=== PATIENT | female | born 1995 | race Caucasian/White ===

== ENCOUNTER 2016-12-16 11:21 | Emergency (ER) | payer SELFPAY ==
[2016-12-16 11:33] VITALS: BP 110/64
--- NOTE | 2016-12-16 12:26 | UC ---
Abelino Hayes Angela, [facility] for [facility] on 12/16/16 at 1159 . Complaint Female HPI - HPI Summary HPI Summary: In Room Note: This pt is a 21 y/o female presenting to [facility] c/o dysuria and lower abd pain x1 day. She also reports bumps on the outside of her vagina x1 day, but is not painful. Pt describes them as "sweat pimples." She states she popped one of them and drained pus. Pt denies back pain, cough, nausea, vomiting, diarrhea, vaginal discharge, vaginal bleeding. Pt is sexually active. Pt denies any STIs. She works in [employer] and sometimes doesn't have a chance to go to the bathroom to urinate. Her LNMP: November 15-November 16. MDs Note: Healthy 21 y/o with 1 day history of dysuria. Vital signs are stable. 8/10 burning discomfort. Previous history of asthma. Visit history is noncontributory. Pt has no known allergies. Nurses Note: Pt states "has UTI". States sx started yesterday, burning urination. Pt states has "couple of red bumps" down there.s - History Of Current Complaint Chief Complaint: UCGU Stated Complaint: UTI Time Seen by Provider: 12/16/16 11:35 Hx Obtained From: Patient Hx Last Menstrual Period: 11/16/16 Onset/Duration: Lasting Days - 1 day Timing: Constant Pain Intensity: 8 Pain Scale Used: 0-10 Numeric Character: Burning Aggravating Factor(s): Nothing Alleviating Factor(s): Nothing Associated Signs And Symptoms: Negative: Back Pain, Vaginal Bleeding/Discharge, Vaginal Discharge, Nausea, Vomiting(# Of Episodes =), Genital Swelling - Allergies/Home Medications Allergies/Adverse Reactions: Allergies Allergy/AdvReac Type Severity Reaction Status Date / Time No Known Allergies Allergy Verified 12/16/16 11:35 PMH/Surg Hx/FS Hx/Imm Hx Other Endocrine History: DENIES: Diabetes Other Cardiovascular History: DENIES: HTN, Cardiac disease - Surgical History Surgical History: None Surgery Procedure, Year, and Place: denies - Family History Known Family History: Negative: Cardiac Disease, Hypertension, Diabetes - Social History Alcohol Use: None Substance Use Type: None Smoking Status (MU): Never Smoked Tobacco Review of Systems Constitutional: Negative Skin: Negative Eyes: Negative ENT: Negative Respiratory: Negative Gastrointestinal: Abdominal Pain - Lower abd pain Genitourinary: Dysuria Motor: Negative Neurovascular: Negative Musculoskeletal: Negative Neurological: Negative Psychological: Negative All Other Systems Reviewed And Are Negative: Yes Physical Exam Triage Information Reviewed: Yes Vital Signs: Initial Vital Signs Temp 98.7 F 12/16/16 11:28 Pulse 86 12/16/16 11:28 Resp 20 12/16/16 11:28 BP 110/64 12/16/16 11:28 Pulse Ox 99 12/16/16 11:28 Vital Signs Reviewed: Yes - Additional Comments The patient is well-nourished in no acute distress and in no acute pain. The skin is warm and dry and skin color reflects adequate perfusion. HEENT: The head is normocephalic and atraumatic. The pupils are equal and reactive. The conjunctivae are clear and without drainage. Nares are patent and without drainage. Mouth reveals moist mucous membranes and the throat is without erythema and exudate. The external ears are intact. The ear canals are patent and without drainage. The tympanic membranes are intact. Neck is supple with full range of motion and non-tender. There are no carotid bruits. There is no neck vein distension. Respiratory: Chest is non-tender. Lungs are clear to auscultation and breath sounds are symmetrical and equal. Cardiovascular: Hear is regular rate and rhythm. There is no murmur or rub auscultated. There is no peripheral edema and pulses are symmetrical and equal. Abdomen: The abdomen is soft. There are normal bowel sounds heard in all four quadrants and there is no organomegaly palpated. THERE IS SUPRAPUBIC TENDERNESS TO PALPATION. THERE IS NO CVA TENDERNESS. : Female room service attendant present. THERE ARE 5 SMALL, LESS THAN 3 MM, RED PAPULES CONSISTENT WITH SKIN IRRITATION FROM SHAVING IN THE PERIVAGINAL AREA. Musculoskeletal: There is no back pain noted. Extremities are non-tender with full range of motion. There is good capillary refill. There is no peripheral edema or calf tenderness elicited. Neurological: Patient is alert and oriented to person, place and time. The patient has symmetrical motor strength in all four extremities. Psychiatric: The patient has an appropriate affect and does not exhibit any anxiety or depression. Complaint Female Dx - Course Course Of Treatment: Medications have been included in the original chart and reviewed. Normal BP reading and no follow-up instructions required. On exam, THERE IS NO CVA TENDERNESS. THERE IS SUPRAPUBIC TENDERNESS TO PALPATION. MDM: This pt presents with an obvious cystitis but her urine test was positive. I explained this to the pt and noted her last menstrual period was approximately 1 month ago and has been sexually active without contraception. She will follow up immediately. On her physical exam, I noticed 5 small, less than 3 mm, red papules consistent with skin irritation from shaving in the perivaginal area. There was no obvious evidence of cellulitis or lymphangitis. I told the pt to use a clipper and watch for infection. - Differential Dx/Diagnosis Differential Diagnosis/HQI/PQRI: Urinary Tract Infection, Other - Pyelonephritis Provider Diagnoses: 1. Positive test. 2. Cystitis. 3. Pseudofolliculitis barbae (inflammatory response to shaving) Discharge - Discharge Plan Condition: Stable Disposition: HOME Prescriptions: Cephalexin CAP* [Keflex CAP*] 500 mg PO TID #15 cap Phenazopyridine TAB* [Pyridium TAB*] 200 mdi PO TID #6 tab Patient Education Materials: Phenazopyridine (By mouth), (ED), Urinary Tract Infection in Women (ED) Referrals: Richard PIERCE,Santosh Lopez [Primary Care Provider] - Additional Instructions: WE DISCUSSED: Your sample will be sent for culture to double check your antibiotic. You have a urinary tract infrection. Start Kelflex, 3 times a day for 5 days. You may have some residual symptoms but they should go away by day 5. Take pyridium for burning pain for 2 days. Stop shaving the area of irritation. [facility] for positive test. Start vitamins. Call us with any questions or concerns. The documentation as recorded by the Abelino chowdary Angela accurately reflects the service I personally performed and the decisions made by me, Darrell Blanchard MD.
--- NOTE | 2016-12-18 07:25 | UC ---
Progress - Progress Note Progress Note: notify pt no UTI stop antibiotic recheck if still symptomatic
== END 2016-12-16 12:28 | disposition home or self-care (01) ==
LOC: UCEAST 11:21
DX: N30.90 Cystitis, unspecified without hematuria (principal); Z32.01 Encounter for pregnancy test, result positive; L73.1 Pseudofolliculitis barbae
CPT/HCPCS: 81003; 84702; 87086; 99212; G0463

== ENCOUNTER → 2017-03-02 09:25 | Emergency (ER) | payer OTHER ==
[~2017-03-02 09:25] MED LIST: Albuterol 2.5 MG/3 ML NEB.SOL* (0.083%) INH ONE; Albuterol/Ipratropium NEB.SOL* Albuterol 2.5 MG/Ipratropium 0.5 MG 3 ML INH ONE; predniSONE TAB* 20 MG PO ONE
[2017-03-02 09:29] VITALS: BP 131/81
[2017-03-02 11:07] LABS: Hematocrit 42 % (35-47); Hemoglobin 14.4 g/dl (12.0-16.0); Mean Corpuscular HGB Conc 34 g/dl (31-36); Mean Corpuscular Hemoglobin 32 pg (27-31); Mean Corpuscular Volume 93 fL (80-97); Mean Platelet Volume 7 um3 (7.4-10.4); Red Blood Count 4.56 10^6/ul (4.0-5.4); Red Cell Distribution Width 13 % (10.5-15)
[2017-03-02 11:20] LABS: BUN/Creatinine Ratio 16.1 (8-20); Calcium 9.5 mg/dL (8.6-10.3); EGFR African American 153.4 (>60); EGFR Non-African American 119.3 (>60); Globulin 3.8 g/dL (2-4); Potassium 3.9 mmol/L (3.5-5.0); Total Bilirubin 0.3 mg/dL (0.2-1.0); Total Protein 7.8 g/dL (6.4-8.9)
--- NOTE | 2017-03-02 11:34 | RAD ---
INDICATION: Short of breath. Wheezing left lung base COMPARISON: B 2015 TECHNIQUE: An AP portable view obtained at 1050 hours is submitted. FINDINGS: Bones/Soft Tissues: There are no acute bony findings. Cardiomediastinal: The cardiomediastinal silhouette is normal. Lungs: There are no infiltrates. Pleura: There are no pleural effusions. Other: None IMPRESSION: NO ACTIVE DISEASE.
--- NOTE | 2017-03-02 12:43 | ED ---
Leana Hayes Nilda, scribed for Arvin Alvarado MD on 03/02/17 at 1027 . Shortness of Breath - HPI Summary HPI Summary: This patient is a 21 year old F presenting to [facility] accompanied by boyfriend with a chief complaint of constant SOB with wheezing that began last night. She states that she could not sleep last night because of her dyspnea. Symptoms aggravated by exertion and alleviated by nothing. Patient reports that 2 weeks ago she began to have a non-productive cough, rhinorrhea, sore throat, post- nasal drip, and back pain. Patient denies fever and chills. She is 14 weeks . She is currently on Zoloft. NKDA. No PMHx asthma. - History of Current Complaint Chief Complaint: EDUpperRespComplaint Time Seen by Provider: 03/02/17 09:58 Hx Obtained From: Patient Onset/Duration: Sudden Onset, Lasting Days, Still Present Timing: Constant Current Severity: Moderate Dyspnea At: Rest Aggrevating Factors: Movement Associated Signs & Symptoms: Cough (Nonproductive), Wheezing - Allergy/Home Medications Allergies/Adverse Reactions: Allergies Allergy/AdvReac Type Severity Reaction Status Date / Time No Known Allergies Allergy Verified 03/02/17 09:29 PMH/Surg Hx/FS Hx/Imm Hx Respiratory History: Reports: Hx Pneumonia Denies: Hx Asthma Sensory History: Denies: Hx Legally Blind EENT History: Denies: Hx Deafness - Surgical History Surgery Procedure, Year, and Place: denies Infectious Disease History: No Infectious Disease History: Denies: Traveled Outside the [place] in Last 30 Days - Family History Known Family History: Positive: Seizure Disorder Negative: Cardiac Disease, Hypertension, Diabetes - Social History Occupation: Unemployed Alcohol Use: None Substance Use Type: Reports: None Smoking Status (MU): Never Smoked Tobacco Review of Systems Negative: Fever, Chills Positive: Sore Throat, Nasal Discharge, Other - post nasal drip Positive: Shortness Of Breath, Cough, Other - wheezing Positive: Other - back pain All Other Systems Reviewed And Are Negative: Yes Physical Exam Triage Information Reviewed: Yes Vital Signs On Initial Exam: Initial Vitals Temp Pulse Resp BP Pulse Ox 97.0 F 80 20 131/81 97 03/02/17 09:27 03/02/17 09:27 03/02/17 09:27 03/02/17 09:27 03/02/17 09:27 Vital Signs Reviewed: Yes Appearance: Positive: Well-Appearing, No Pain Distress Skin: Positive: Warm, Skin Color Reflects Adequate Perfusion Head/Face: Positive: Normal Head/Face Inspection ENT: Positive: Normal ENT inspection Neck: Positive: Supple, Nontender Respiratory/Lung Sounds: Positive: Wheezes - bilateral throughout with prolonged expiratory phase, with some crackles in left lower chest. Cardiovascular: Positive: RRR. Negative: Murmur Abdomen Description: Positive: Nontender Musculoskeletal: Positive: Strength/ROM Intact Neurological: Positive: Sensory/Motor Intact, Alert, Oriented to Person Place, Time, CN Intact II-III Psychiatric: Positive: Normal - [place] Coma Scale Best Eye Response: 4 - Spontaneous Best Motor Response: 6 - Obeys Commands Best Verbal Response: 5 - Oriented Coma Scale Total: 15 Diagnostics - Vital Signs Vital Signs Temp Pulse Resp BP Pulse Ox 03/02/17 09:57 18 03/02/17 09:27 97.0 F 80 20 131/81 97 - Laboratory Result Diagrams: 03/02/17 10:40 03/02/17 10:40 Lab Statement: Any lab studies that have been ordered have been reviewed, and results considered in the medical decision making process. - Radiology CXR Radiology Interpretation Completed By: Radiologist - CXR reveals NAD. ED physician has reviewed this radiology report and agrees. Re-Evaluation - Re-Evaluation First Eval Re-Evaluation Time: 11:46 Change: Unchanged - still with bilateral expiratory wheezes, and prolonged expiratory phase. Second Eval Re-Evaluation Time: 12:41 Change: Improved Comment: she reports complete relief of her symptoms and her lungs are clear to ausculation. Course/Dx - Course Assessment/Plan: This patient is a 21 year old F presenting to [facility] accompanied by boyfriend with a chief complaint of constant SOB with wheezing that began last night. She states that she could not sleep last night because of her dyspnea. Symptoms aggravated by exertion and alleviated by nothing. Patient reports that 2 weeks ago she began to have a non-productive cough, rhinorrhea, sore throat, post-nasal drip, and back pain. Patient denies fever and chills. She is 14 weeks . She is currently on Zoloft. NKDA. No PMHx asthma. Pt given albuterol and prednisone tab in ED. Pending CXR. CXR reveals NAD. Dx: asthmatic bronchitis - Diagnoses Provider Diagnoses: Asthmatic bronchitis Discharge - Discharge Plan Condition: Good Disposition: HOME Prescriptions: Albuterol HFA INHALER* [Ventolin HFA Inhaler*] 2 puff INH Q4H PRN #1 mdi PRN Reason: Cough predniSONE TAB* [Deltasone TAB*] 40 mg PO DAILY #8 tab Patient Education Materials: Bronchospasm (ED), Acute Bronchitis (ED) Referrals: Richard PIERCE,Santosh Lopez [Primary Care Provider] - 2 Days The documentation as recorded by the Leana chowdary Nilda accurately reflects the service I personally performed and the decisions made by Christiano guerrero Walter, MD.
== END | disposition home or self-care (01) ==
LOC: ED 09:25
DX: J45.909 Unspecified asthma, uncomplicated (principal); R05 Cough; R06.2 Wheezing; R06.02 Shortness of breath; M54.9 Dorsalgia, unspecified; Z34.91 Encounter for supervision of normal pregnancy, unspecified, first trimester
CPT/HCPCS: 36415; 71010; 80053; 83605; 83880; 84484; 85025; 87040; 87502; 94640; 99282; A9270-GY; J7512